=== PATIENT | male | born 1995 | race Caucasian/White ===

== ENCOUNTER 2017-11-03 03:33 | Emergency (ER) | payer OTHER ==
[~2017-11-03] VITALS: Ht 180.3 cm; Wt 70.0 kg
[2017-11-03 03:48] VITALS: BP 127/57; PULSE 114; RESP 22; TEMP 99.6
[2017-11-03 04:27] LABS: AUTOMATED NEUTROPHIL # 7.9 TH/MM3 (1.8-7.7); BASOPHIL # 0.1 TH/MM3 (0-0.2); BASOPHIL % 1.2 % (0.0-2.0); EOSINOPHIL # 0.1 TH/MM3 (0-0.4); EOSINOPHIL % 0.5 % (0.0-4.0); HEMATOCRIT 39.9 % (39.0-51.0); HEMOGLOBIN 14.8 GM/DL (13.0-17.0); LYMPH % 20.6 % (9.0-44.0); LYMPHOCYTE # 2.2 TH/MM3 (1.0-4.8); MEAN CELL VOLUME 84.6 FL (80.0-100.0); MEAN CORPUSCULAR HEMOGLOBIN 31.4 PG (27.0-34.0); MEAN PLATELET VOLUME 8.5 FL (7.0-11.0); MONO % 4.4 % (0.0-8.0); MONOCYTE # 0.5 TH/MM3 (0-0.9); NEUT % 73.3 % (16.0-70.0); PLATELET COUNT 303 TH/MM3 (150-450); RED BLOOD COUNT 4.72 MIL/MM3 (4.50-5.90); RED CELL DISTRIBUTION WIDTH 12.5 % (11.6-17.2); WHITE BLOOD COUNT 10.7 TH/MM3 (4.0-11.0)
[2017-11-03 04:35] LABS: ALBUMIN 4.5 GM/DL (3.4-5.0); AST (GOT) 19 U/L (15-37); BICARBONATE 23.3 MEQ/L (21.0-32.0); BLOOD UREA NITROGEN 15 MG/DL (7-18); CALCIUM 8.8 MG/DL (8.5-10.1); CHLORIDE 106 MEQ/L (98-107); CREATININE 1.15 MG/DL (0.60-1.30); GLOMERULAR FILTRATION RATE 78 ML/MIN (>89); GLUCOSE,RANDOM 135 MG/DL (74-106); SODIUM (NA) 140 MEQ/L (136-145)
[2017-11-03 04:36] LABS: ALT (GPT) 25 U/L (12-78)
[2017-11-03 04:45] LABS: MEAN CORPUSCULAR HGB CONC 37.1 % (32.0-36.0)
[2017-11-03 04:46] LABS: ALKALINE PHOSPHATASE 59 U/L (45-117); TOTAL BILIRUBIN ADULT 0.5 MG/DL (0.2-1.0); TOTAL PROTEIN 7.5 GM/DL (6.4-8.2)
[2017-11-03] MEDS ORDERED: POTASSIUM CHLORIDE 20 MEQ CONTROLLED RELEASE TAB PO ONE (05:30)
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
[2017-11-03 15:57] VITALS: BP 122/59; PULSE 98; RESP 16; TEMP 98.4; O2SAT 98
[2017-11-03] MEDS ORDERED: ZIPRASIDONE MESYLATE 20 MG VIAL IM ONE (16:00)
[2017-11-03] MEDS ORDERED: diphenhydrAMINE HCL 50 MG/ML VIAL IM ONE (16:00)
[2017-11-03 20:31] VITALS: BP 125/60; PULSE 114; RESP 20; TEMP 98.2; O2SAT 98
[2017-11-04 00:19] VITALS: BP 111/66; PULSE 104; RESP 16; TEMP 98.2; O2SAT 99
[2017-11-04] MEDS ORDERED: diphenhydrAMINE HCL 50 MG/ML VIAL IM ONE (03:00)
[2017-11-04] MEDS ORDERED: ZIPRASIDONE MESYLATE 20 MG VIAL IM ONE ×2 (03:00→13:30)
[2017-11-04 06:54] VITALS: BP 109/56; PULSE 127; RESP 18; TEMP 98.5; O2SAT 100
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
[2017-11-04] MEDS ORDERED: LORazepam 2 MG/ML VIAL IM ONE (13:30)
[2017-11-04 14:10] VITALS: BP 90/52; PULSE 97; RESP 20
[2017-11-04 19:30] VITALS: BP 98/70; PULSE 105; RESP 20
== END 2017-11-05 00:16 ==
LOC: NEPJ 03:33
DX: F29 Unspecified psychosis not due to a substance or known physiological condition (principal); F12.10 Cannabis abuse, uncomplicated; F12.90 Cannabis use, unspecified, uncomplicated; R00.0 Tachycardia, unspecified; Z72.0 Tobacco use
CPT/HCPCS: 80053; 80307; 84443; 85025; 96372; 99285; J1200; J2060; J3486